=== PATIENT | male | born 1975 | race Caucasian/White ===

== ENCOUNTER 2022-02-16 17:31 | Emergency (ER) | payer BC, OTHER ==
[2022-02-16 18:39] LABS: CORONAVIRUS COVID-19 NAA POSITIVE (NEGATIVE); INFLUENZA A NAA NEGATIVE (NEGATIVE); INFLUENZA B NAA NEGATIVE (NEGATIVE)
[2022-02-16] MEDS ORDERED: Ibuprofen 600 MG Tab PO ONE (18:50)
== END 2022-02-16 19:28 | disposition home or self-care (01) ==
LOC: MW.ED 17:31
DX: U07.1 COVID-19 (principal)
CPT/HCPCS: 0240U; 81003; 99283; A9270